=== PATIENT | male | born 1985 | race Two or more races ===

== ENCOUNTER 2025-03-21 12:27 | Emergency (ER) | payer MEDICAID, SELFPAY ==
[2025-03-21 12:46] VITALS: BP 116/73; PULSE 107; RESP 18; TEMP 37.2; O2SAT 100; BMI 36.3
--- NOTE | 2025-03-21 12:51 | EKG_ITS ---
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
--- NOTE | 2025-03-21 12:52 | PD.EDRME ---
Rapid Medical Screening Exam E Arrival date/time: 03/21/25 12:27 39-year-old male with a history of liver cirrhosis presents to the emergency room with a chief complaint of swelling to his bilateral hands and jaundice. Patient states he is retaining fluid and he is now short of breath. I have greeted and performed a focused initial assessment of this patient. A comprehensive ED assessment and evaluation of the patient, analysis of all test results, and completion of the medical decision making process will be conducted by additional ED providers. Chief Complaint: General Adult/Misc Complain Time Seen by Provider: 03/21/25 12:36 Vital signs: Vital Signs Temperature 98.9 F 03/21/25 12:46 Pulse Rate 107 H 03/21/25 12:46 Respiratory Rate 18 03/21/25 12:46 Blood Pressure 116/73 03/21/25 12:46 Pulse Oximetry (%) 100 03/21/25 12:46 Oxygen Delivery Method Room Air 03/21/25 12:46 Vital signs reviewed by provider: Yes
[2025-03-21 13:19] LABS: Basophils % (Auto) 0 % (0-2.5); Eosinophils # (Auto) 0.1 Thou/mm3 (0.0-0.5); Eosinophils % (Auto) 1 % (0-10); Hematocrit 20.9 % (41.0-53.0); Immature Granulocytes % (Auto) 1 % (0-0); Immature Granulocytes Auto 0.03 Thou/mm3 (0.00-0.00); Lymphocytes # (Auto) 1.5 Thou/mm3 (1.0-4.8); Lymphocytes % (Auto) 22 % (10-50); Mean Corpuscular HGB Conc 33.5 g/dl (31.0-37.0); Mean Corpuscular Hemoglobin 28.2 pg (25.0-35.0); Mean Corpuscular Volume 84 fL (80-100); Monocytes % (Auto) 16 % (0-12); Neutrophils # (Auto) 3.9 Thou/mm3 (1.8-7.7); Neutrophils % (Auto) 60 % (37-80); Nucleated Red Blood Cell # 0.02 Thou/mm3 (0.00-0.00); Nucleated Red Blood Cell % 0 /100 WBC (0); Platelet Count 84 Thou/mm3 (140-440); RDW Standard Deviation 87.1 fL (35.1-43.9); Red Blood Count 2.48 Miln/mm3 (4.50-5.90); White Blood Count 6.6 Thou/mm3 (3.8-10.6)
[2025-03-21 13:33] LABS: INR 1.8 (0.9-1.3); Partial Thromboplastin Time 32.5 Seconds (22.0-36.0); Prothrombin Time 19.3 Seconds (9.0-12.2)
[2025-03-21 13:35] LABS: Ammonia 21 uMol/L (11-32)
[2025-03-21 13:36] LABS: B-Type Natriuretic Peptide 811 pg/mL (0-100)
[2025-03-21 13:38] LABS: Alanine Aminotransferase 11 U/L (10-49); Albumin, Serum 2.6 gm/dL (3.5-5.0); Albumin/Globulin Ratio 0.5 (1.2-2.2); Alkaline Phosphatase 104 U/L (46-116); Anion Gap 9 (7-16); Aspartate Amino Transferase 64 U/L (0-34); BUN/Creatinine Ratio 14 Ratio (12-20); Bilirubin,Total 9.2 mg/dL (0.3-1.2); Blood Urea Nitrogen 13 mg/dL (9-23); Calcium 7.7 mg/dL (8.3-10.6); Calcium (Corrected) 8.8 mg/dL (8.5-10.1); Carbon Dioxide 22.5 mMol/L (20.0-31.0); Chloride 98 mMol/L (98-107); Creatinine (Component) 0.9 mg/dL (0.6-1.3); Estimated Creatinine Clearance 123.3 mL/min (>60); Glucose 111 mg/dL (74-106); Lipase 68 U/L (12-53); Osmolality,Calculated 260 (275-295); Potassium 4.2 mMol/L (3.4-5.1); Sodium 129 mMol/L (136-145); Total Protein 7.6 gm/dL (5.7-8.2); Troponin I < 0.002 ng/mL (0.0-0.045); eGFR > 60 See Note
[2025-03-21 18:26] VITALS: BP 106/59; PULSE 72; RESP 18; TEMP 37; O2SAT 96
--- NOTE | 2025-03-21 18:40 | PD.EDRECHK ---
ED Recheck Abnl Lab Rx-RME/HPI General Chief Complaint: General Adult/Misc Complain Stated Complaint: RETAINING WATER Time Seen by Provider: 03/21/25 12:36 Arrival date/time: 03/21/25 12:27 Limitations: language barrier (speaks Nicaraguan) RME / HPI RME / HPI narrative: 03/21/25 12:27 39-year-old male with a history of liver cirrhosis presents to the emergency room with a chief complaint of swelling to his bilateral hands and jaundice. Patient states he is retaining fluid and he is now short of breath. I have greeted and performed a focused initial assessment of this patient. A comprehensive ED assessment and evaluation of the patient, analysis of all test results, and completion of the medical decision making process will be conducted by additional ED providers. -------- Dr. Burroughs's Main ED Evaluation: 39yo male with a history of cirrhosis presents to the ED for a chief complaint of swelling to his bilateral hands. Patient states he was admitted 15 days ago at [facility] and was diagnosed with cirrhosis. Patient states he has been retaining fluid and is requesting a procedure to remove the fluid . Patient states he is a former alcoholic and last drank 1.5 months ago. Patient reports feeling nauseated in the mornings for the last 2 days. He denies any abdominal pain, fever, chills, chest pain, shortness of breath or any other associated symptoms. Patient states he does not remember the name of his GI specialist in [place], but has a follow-up appointment with them in the next 3 weeks. He states he is on 2 medications (does not know the name of them), but is compliant with them. NKA. Related Data Allergies Allergy/AdvReac Type Severity Reaction Status Date / Time No Known Allergies Allergy Verified 03/21/25 12:29 Review of Systems Review of Systems Systems Reviewed: All systems reviewed, normal except as documented Past Medical History Social History SMOKING STATUS: Current some day smoker ED Exam General Limitations: Present language barrier (speaks Nicaraguan) General appearance: Present alert and in no apparent distress Head Head exam: Present atraumatic Eye Eye exam: Present normal appearance, PERRL and EOMI ENT ENT exam: Present normal exam, normal oropharynx and mucous membranes moist Neck Neck exam: Present normal inspection, full ROM and trachea midline Chest Chest inspection: Present normal inspection and symmetric chest wall rise Respiratory Respiratory exam: Present normal lung sounds bilaterally Cardiovascular Cardiovascular exam: Present regular rate, normal rhythm and normal heart sounds Abdominal Exam Abdominal exam: Present soft and other (fluid wave that is not tight) Extremities Exam Extremities exam: Present normal inspection, full ROM and other (has large legs); Absent pedal edema Back Exam Back exam: Present normal inspection and full ROM Neurological Exam Neurological exam: Present alert, oriented X3 and CN II-XII intact Psychiatric Psychiatric exam: Present normal affect and normal mood Skin Skin exam: Present warm, dry, intact and normal color Course Quality Measures none Orders Category Date Time Status EKG (ED ONLY) *Do not use* NOW Care 03/21/25 12:51 Completed EKG (ED Only) Stat Exams 03/21/25 12:51 Draft Ammonia Stat Lab 03/21/25 13:01 Completed BNP [B-Type Natriuretic Peptide] Stat Lab 03/21/25 13:01 Completed CBC Stat Lab 03/21/25 13:01 Completed CMP [Comprehensive Metabolic Panel] Stat Lab 03/21/25 13:01 Completed Lipase Stat Lab 03/21/25 13:01 Completed PT [Prothrombin Time with INR] Stat Lab 03/21/25 13:01 Completed PTT [Partial Thromboplastin Time] Stat Lab 03/21/25 13:01 Completed Troponin I Stat Lab 03/21/25 13:01 Completed UA [Urinalysis] Stat Lab 03/21/25 12:51 Ordered Urine Culture Stat Lab 03/21/25 12:51 Ordered Vital Signs Vital signs: Vital Signs Temperature 98.9 F 03/21/25 12:46 Pulse Rate 107 H 03/21/25 12:46 Respiratory Rate 18 03/21/25 12:46 Blood Pressure 116/73 03/21/25 12:46 Pulse Oximetry (%) 100 03/21/25 12:46 Oxygen Delivery Method Room Air 03/21/25 12:46 Recheck / Abnormal Lab / Rx MDM Narrative MDM Narrative:: Scribe Attestation: 03/21/25 Gaby Llamas am scribing for and in the presence of Dr. Burroughs. We do not have IR until the morning. Patient is not short of breath or hypoxic. He is not febrile at this time and does not need an emergent procedure. Discussed this with the patient. Patient was informed to return here to the ED in the morning for a paracentesis. Patient verbalized understanding. Patient data External records reviewed:: [facility] previous records (Per chart review, patient has no previous ED visits or admissions to this facility.) Clinical information provided by:: patient Social determinants that could affect healthcare access:: alcohol use (history of) Patient has the following chronic illnesses:: cirrhosis How is presenting disease/condition affected by chronic disease/condition?: caused by Evaluation data The following diagnostics were reviewed and interpreted by me:: lab results and EKG tracing(s) Lab and/or radiology exams considered but not ordered:: none Interpretation Summary: WBC count is normal, HnH is 7.0/20.9, Sodium is 129, Total Bilirubin 9.2, BNP 811, according to my interpretation. EKG done at 1735, NSR, rate of 68, low voltage, LA interval: 150, QTc: 493, no acute ST or T wave changes, according to my interpretation. Medications / Prescriptions Medications or Prescriptions considered but not ordered:: none Medication administrations:: none Consultations Consultation(s) initiated? (list below): No Diagnosis Recheck Differential Diagnosis: other (cirrhosis, lower extremity swelling, shortness of breath) Most likely diagnosis given after review of the tests above:: see clinical impression below Admission Indicated Admission indicated?: not indicated Admission Request Was there a request for admission?: No Disposition Plan Disposition Plan: Discharge Discharge Attestation Discharge Attestation: The patient and all family members were given an opportunity to ask questions and understood the discharge instructions. Discharge instructions specifically effects, indications for sooner follow up or return to the emergency department, and the expected course of current diagnosis. Patient condition: Stable Discharge Plan Plan Patient Disposition: HOME (Self Care) Patient condition on transfer: Stable Prescriptions/Referrals Referrals: No Primary/Family,Physician [Primary Care Provider] - In 1 week Problem List Clinical Impression: Cirrhosis Patient/Caregiver Discharge Instructions Education Materials: ED Cirrhosis Additional Instructions: Please follow-up tomorrow morning at 8 AM in the emergency department. At that time we have interventional radiologist who can do paracentesis. Please return sooner for worsening problems such as chest pain or shortness of breath. Print Language: Nicaraguan Stand Alone Forms: Carol Award Info., Patient Portal Info Letter
--- NOTE | 2025-03-21 19:18 | PC.NURSE ---
Patient states pain 9/10. Informed ER provider and received verbal order for 1 mg hydromorphone.
[2025-03-21] MEDS: HYDROmorphone INJ 2 MG/ML VIAL 1 MG IM (19:37)
== END 2025-03-21 19:40 | disposition home or self-care (01) ==
PROVIDERS: Nurse Practitioner Family; Emergency Provider Emergency Medicine
DX: K74.60 Unspecified cirrhosis of liver (principal); I45.81 Long QT syndrome
CPT/HCPCS: 36415; 80053; 81001; 82140; 83690; 83880; 84484; 85025; 85610; 85730; 87086; 93005; 96372; 99284; J1171

== ENCOUNTER 2025-03-22 07:42 | Emergency (ER) | payer MEDICAID, SELFPAY ==
[2025-03-22 07:45] VITALS: BMI 36.3
[2025-03-22 07:57] VITALS: BP 125/73; PULSE 69; RESP 22; TEMP 36.7; O2SAT 95; BMI 37.7
--- NOTE | 2025-03-22 08:10 | PD.EDRME ---
Rapid Medical Screening Exam E Arrival date/time: 03/22/25 07:42 39-year-old male with a history of liver cirrhosis presents to the emergency room with a chief complaint of generalized swelling and shortness of breath. Patient was seen here yesterday and was told to return for paracentesis today. I have greeted and performed a focused initial assessment of this patient. A comprehensive ED assessment and evaluation of the patient, analysis of all test results, and completion of the medical decision making process will be conducted by additional ED providers. Chief Complaint: General Adult/Misc Complain Time Seen by Provider: 03/22/25 07:52 Vital signs: Vital Signs Temperature 98.1 F 03/22/25 07:57 Pulse Rate 69 03/22/25 07:57 Respiratory Rate 22 H 03/22/25 07:57 Blood Pressure 125/73 03/22/25 07:57 Pulse Oximetry (%) 95 03/22/25 07:57 Oxygen Delivery Method Room Air 03/22/25 07:57 Vital signs reviewed by provider: Yes
[2025-03-22 08:53] LABS: Basophils % (Auto) 0 % (0-2.5); Eosinophils # (Auto) 0.1 Thou/mm3 (0.0-0.5); Eosinophils % (Auto) 2 % (0-10); Hematocrit 22.2 % (41.0-53.0); Immature Granulocytes % (Auto) 0 % (0-0); Immature Granulocytes Auto 0.01 Thou/mm3 (0.00-0.00); Lymphocytes # (Auto) 1.4 Thou/mm3 (1.0-4.8); Lymphocytes % (Auto) 26 % (10-50); Mean Corpuscular HGB Conc 33.8 g/dl (31.0-37.0); Mean Corpuscular Hemoglobin 28.8 pg (25.0-35.0); Mean Corpuscular Volume 85 fL (80-100); Monocytes # (Auto) 0.8 Thou/mm3 (0.0-0.8); Monocytes % (Auto) 15 % (0-12); Neutrophils # (Auto) 3.1 Thou/mm3 (1.8-7.7); Neutrophils % (Auto) 57 % (37-80); Nucleated Red Blood Cell % 0 /100 WBC (0); Platelet Count 87 Thou/mm3 (140-440); RDW Standard Deviation 88.9 fL (35.1-43.9); White Blood Count 5.4 Thou/mm3 (3.8-10.6)
[2025-03-22 09:01] LABS: Hemoglobin 7.5 g/dL (13.5-16.0)
[2025-03-22 09:12] LABS: Alanine Aminotransferase 12 U/L (10-49); Albumin, Serum 2.7 gm/dL (3.5-5.0); Albumin/Globulin Ratio 0.5 (1.2-2.2); Alkaline Phosphatase 122 U/L (46-116); Anion Gap 8 (7-16); Aspartate Amino Transferase 59 U/L (0-34); BUN/Creatinine Ratio 13 Ratio (12-20); Bilirubin,Total 8.8 mg/dL (0.3-1.2); Blood Urea Nitrogen 12 mg/dL (9-23); Carbon Dioxide 24.8 mMol/L (20.0-31.0); Chloride 99 mMol/L (98-107); Creatinine (Component) 0.9 mg/dL (0.6-1.3); Estimated Creatinine Clearance 125.7 mL/min (>60); Globulin 5.1 gm/dL (2.3-3.5); Glucose 94 mg/dL (74-106); Osmolality,Calculated 264 (275-295); Potassium 4.6 mMol/L (3.4-5.1); Sodium 132 mMol/L (136-145); Total Protein 7.8 gm/dL (5.7-8.2); eGFR > 60 See Note
[2025-03-22 09:52] VITALS: BP 116/66; PULSE 68; RESP 18; TEMP 36.6; O2SAT 99
[2025-03-22 10:05] LABS: INR 1.8 (0.9-1.3); Partial Thromboplastin Time 31.6 Seconds (22.0-36.0); Prothrombin Time 19.1 Seconds (9.0-12.2)
--- NOTE | 2025-03-22 10:42 | PD.EDADULT ---
ED General RME/HPI General Chief complaint: General Adult/Misc Complain Stated complaint: TOLD TO COME BACK TO THE ER FOR DIALYSIS Time Seen by Provider: 03/22/25 07:52 Arrival date/time: 03/22/25 07:42 RME / HPI RME / HPI narrative: The patient is a 39-year-old male with significant past medical history of alcoholic cirrhosis presented to ED with chief complaint of generalized body swelling and mild CALDEÓRN for past couple of days. He reported lately it has been difficult for him to bend his knees. He denies any headache, lightheadedness, chest pain, abdominal pain, any changes in bowel or bladder habit, fever or chills, nausea or vomiting. Related Data Previous Rx's ?Medication ?Instructions ?Recorded bumetanide 1 mg tablet 1 mg PO BID #60 tabs 03/22/25 spironolactone 50 mg tablet 50 mg PO QDAY #30 tabs 03/22/25 Allergies Allergy/AdvReac Type Severity Reaction Status Date / Time No Known Allergies Allergy Verified 03/22/25 07:48 Review of Systems Review of Systems Systems Reviewed: All systems reviewed, normal except as documented (Above) Past Medical History Social History SMOKING STATUS: Current some day smoker ED Exam Narrative Physical exam: General: No acute distress, Alert and Oriented x 3 HEENT: Moist mucous membranes, oropharynx clear Neck: Supple, No masses, No JVD CVS: S1S2 Regular rate and rhythm, No murmurs, rubs or gallops Lungs: Clear to auscultation with no accessory use, no wheeze no rhonchi Abd: Soft, NT/mildly distended in all quadrant, +BS, no organomegaly Ext: Anasarca, warm and well perfused Skin: No rash Psych: Appropriate mood and affect Course Quality Measures none Orders Category Date Time Status US paracentesis abd w/image Stat Exams 03/22/25 08:10 Ordered CBC Stat Lab 03/22/25 08:36 Completed CMP [Comprehensive Metabolic Panel] Stat Lab 03/22/25 08:36 Completed PT [Prothrombin Time with INR] Stat Lab 03/22/25 08:36 Completed PTT [Partial Thromboplastin Time] Stat Lab 03/22/25 08:36 Completed Lidocaine 1% Pf 30 ml [Xylocaine 1% Pf 30 ml] Med 03/22/25 10:33 Discontinued 30 ml .ROUTE .STK-MED ONE Vital Signs Vital signs: Vital Signs Temperature 98.1 F 03/22/25 07:57 Pulse Rate 69 03/22/25 07:57 Respiratory Rate 22 H 03/22/25 07:57 Blood Pressure 125/73 03/22/25 07:57 Pulse Oximetry (%) 95 03/22/25 07:57 Oxygen Delivery Method Room Air 03/22/25 07:57 Discharge Plan Plan Patient Disposition: HOME (Self Care) Prescriptions/Referrals Prescriptions/Med Rec: New bumetanide 1 mg tablet 1 mg PO BID Qty: 60 0RF spironolactone 50 mg tablet 50 mg PO QDAY Qty: 30 0RF Problem List Clinical Impression: Cirrhosis, Anasarca Patient/Caregiver Discharge Instructions Education Materials: Taking a Diuretic, ED Cirrhosis Additional Instructions: You were discharged by Dr. Leon with following recommendations: Please follow-up with your PCP within 1 week of discharge. You have been started on: -Bumetanide 1 mg twice daily to be continued -Spironolactone 50 Mg daily to be continued -Please take your blood pressure daily, and if your systolic blood pressure is less than 100, hold your bumetanide -Continue with propranolol as prescribed -Recommended to return back to emergency department if your symptoms persists or worsens El Dr. Leon le emely de shruthi con las siguientes recomendaciones: Por favor, consulte con major m?dico de cabecera dentro de pam semana despu?s del shruthi. Se le fuentes iniciado el tratamiento con: -Bumetanida 1 mg dos veces al d?a (continuaci?n) -Espironolactona 50 mg al d?a (continuaci?n) -T?mese la presi?n arterial diariamente y, si major presi?n arterial sist?lica es inferior a 100, suspenda la administraci?n de bumetanida. -Contin?e con propranolol seg?n lo prescrito. -Se recomienda regresar a urgencias si los s?ntomas persisten o empeoran. Print Language: Vietnamese Stand Alone Forms: Carol Award Info., Patient Portal Info Letter MDM Narrative MDM hospital course: The patient is a 39-year-old male with significant past medical history of alcoholic cirrhosis presented to ED with chief complaint of generalized body swelling and mild CALDERÓN for past couple of days. He reported lately it has been difficult for him to bend his knees. He denies any headache, lightheadedness, chest pain, abdominal pain, any changes in bowel or bladder habit, fever or chills, nausea or vomiting. The patient's vitals were stable with blood pressure 125/73, pulse 69, RR 22, temperature 98.1, saturating 95% on room air. After resting for a while, his blood pressure was 116/66, pulse 68, RR 18, temperature 98, saturating 99% on room air. Labs revealed hemoglobin of 7.5, platelet count 87, PT 19.1, INR 1.8, sodium 132, calculated osmolality 264, repeated calcium 9.0, total bilirubin 8.8, AST/ALT 59/12, albumin 2.7, globulin 5.1. The patient's physical exam was not significant to undergo paracentesis at this time. His vitals were stable, and was safe to be discharged on oral medications. Medication Administration(s) Medication Administration History Discontinued Medications Lidocaine HCl (Lidocaine Inj Pf 1% 30 Ml Vial) Confirm Administered Dose 30 ml .ROUTE .[employer] ONE Stop: 03/22/25 10:34
[2025-03-22 11:35] VITALS: PULSE 70; RESP 18; TEMP 36.9; O2SAT 97
== END 2025-03-22 11:35 | disposition home or self-care (01) ==
PROVIDERS: Nurse Practitioner Family; Emergency Provider Family Medicine
DX: R60.1 Generalized edema (principal); K70.30 Alcoholic cirrhosis of liver without ascites
CPT/HCPCS: 36415; 80053; 85025; 85610; 85730; 99283